=== PATIENT | female | born 1985 | race Caucasian/White ===

== ENCOUNTER 2016-08-21 22:25 | Emergency (ER) | payer MEDICAID ==
[~2016-08-21] VITALS: Ht 160 cm; Wt 76.2 kg
[2016-08-21] MEDS ORDERED: Cyclobenzaprine 10mg Tab ORAL ONE (23:15)
[2016-08-21] MEDS ORDERED: Ketorolac 30mg Inj IM ONE (23:15)
[2016-08-22 01:30] VITALS: BP 114/70
[2016-08-22] MEDS ORDERED: IBUPROFEN600 MG ORAL (01:57)
[2016-08-22] MEDS ORDERED: CYCLOBENZAPRINE10 MG ORAL (01:57)
[2016-08-22 02:00] VITALS: BP 114/70
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
--- NOTE | 2016-08-22 10:53 | Diagnostic Imaging Report ---
Indication: Back pain Comparison: None Findings: 3 views of the lumbar spine were obtained. No acute fracture or malalignment is identified. Vertebral body heights and disk spaces are well maintained. Posterior elements are unremarkable. Impression: No acute findings.
--- NOTE | 2016-08-30 12:01 | Diagnostic Imaging Report ---
Indication: Back pain Findings: 2 views of the thoracic spine were obtained. There is no fracture or malalignment identified. There is some narrowing of intervertebral discs with mild marginal endplate spurs. Soft tissues are unremarkable. Impression: Mild spondylosis
== END 2016-08-22 02:00 | disposition home or self-care (01) ==
LOC: EMR 23:30
DX: S39.012A Strain of muscle, fascia and tendon of lower back, initial encounter (principal); X58.XXXA Exposure to other specified factors, initial encounter; Y92.9 Unspecified place or not applicable; Y99.8 Other external cause status
CPT/HCPCS: 72020; 72070; 96372; 99284; J1885